=== PATIENT | male | born 1975 | race Caucasian/White ===

== ENCOUNTER 2017-04-30 09:23 | Emergency (ER) | payer OTHER ==
[2017-04-30 09:46] VITALS: BP 137/80
--- NOTE | 2017-04-30 10:59 | UC ---
Skin Complaint HPI - HPI Summary HPI Summary: "Poison rima to left wrist x2 weeks. New areas have developed to right knee, right elbow, chest, & face over the last 24 hours. " Has had poison rima before. Did not use any rx meds, prednisone or steroid creams for this. [place] from [place] of town. - History of Current Complaint Chief Complaint: UCRas Time Seen by Provider: 04/30/17 10:13 Stated Complaint: SKIN COMPLAINT - Allergy/Home Medications Allergies/Adverse Reactions: Allergies Allergy/AdvReac Type Severity Reaction Status Date / Time No Known Allergies Allergy Verified 04/30/17 09:41 Home Medications: Home Medications Cetirizine* [ZyrTEC 10 MG TAB*] 10 mg PO DAILY 04/30/17 [History Confirmed 04/30] Review of Systems Constitutional: Negative Skin: Rash Eyes: Negative ENT: Negative Respiratory: Negative Cardiovascular: Negative Gastrointestinal: Negative Genitourinary: Negative Motor: Negative Neurovascular: Negative Musculoskeletal: Negative Neurological: Negative Psychological: Negative All Other Systems Reviewed And Are Negative: Yes PMH/Surg Hx/FS Hx/Imm Hx Previously Healthy: Yes - Surgical History Surgical History: None - Family History Known Family History: Negative: Cardiac Disease, Diabetes - Social History Alcohol Use: Occasionally Substance Use Type: None Smoking Status (MU): Never Smoked Tobacco Physical Exam Triage Information Reviewed: Yes Appearance: Well-Appearing, No Pain Distress, Well-Nourished - very pleasant Vital Signs: Initial Vital Signs Temp 98.3 F 04/30/17 09:42 Pulse 65 04/30/17 09:42 Resp 16 04/30/17 09:42 BP 137/80 04/30/17 09:42 Pulse Ox 100 04/30/17 09:42 Vital Signs Reviewed: Yes Eye Exam: Normal ENT Exam: Normal Dental Exam: Normal Neck exam: Normal Neck: Positive: Supple, Nontender, No Lymphadenopathy Respiratory Exam: Normal Respiratory: Positive: Lungs clear, Normal breath sounds, No respiratory distress Cardiovascular Exam: Normal Cardiovascular: Positive: RRR, No Murmur, Pulses Normal, Brisk Capillary Refill Musculoskeletal Exam: Normal Neurological Exam: Normal Psychological Exam: Normal Skin: Positive: rashes - vessicular tracking rash superimposed over erythematous base on chest, face, neck lt arm > rt arm. Course/Dx - Course Course Of Treatment: widespread contact dermatitis. We discusse risks of prednisone including but not limited to anxiety, agitation, insomnia, GI upset, elevated blood pressures and blood sugar readings, adrenal crisis and avascular necrosis of the hip. He is very agreeable with this plan. - Differential Diagnoses - Skin Complaint Differential Diagnoses: Cellulitis, Contact Dermatitis - Diagnoses Provider Diagnoses: contact dermatitis Discharge - Discharge Plan Condition: Stable Disposition: HOME Prescriptions: predniSONE TAB* [Deltasone TAB*] 10 mg PO DAILY #65 tab Patient Education Materials: Contact Dermatitis (ED) Referrals: Non Staff,Doctor [Primary Care Provider] - Additional Instructions: Follow up at your own PCP this week.
== END 2017-04-30 11:12 | disposition home or self-care (01) ==
LOC: UCCORT 09:23
DX: L25.9 Unspecified contact dermatitis, unspecified cause (principal)
CPT/HCPCS: 99202; G0463